=== PATIENT | female | born 1935 | race Caucasian/White ===

== ENCOUNTER 2022-02-03 16:33 | Inpatient (IN) | payer OTHER ==
[~2022-02-03] VITALS: Ht 147.3 cm; Wt 52.6 kg
[2022-02-03 17:15] VITALS: BP_SYST 179
[2022-02-03] MEDS ORDERED: ASPIRIN 81 MG TAB.CHEW PO ONE (17:30)
[2022-02-03 18:41] LABS: EOSINOPHILS # (AUTO) 0.2 K/uL (0.0-0.4); HEMOGLOBIN 10.2 g/dL (12.0-16.0); MONOCYTES # (AUTO) 0.6 K/uL (0.0-1.0); NEUTROPHILS # (AUTO) 3.6 K/uL (1.8-7.7); RED CELL DISTRIBUTION WIDTH 12.8 % (9.0-15.0)
[2022-02-03 18:52] LABS: ANION GAP 8 (5-15); CALCIUM 10.1 mg/dL (8.4-11.0); CHLORIDE 101 mmol/L (98-107); CREATININE 1.99 mg/dL (0.55-1.30); GLUCOSE 103 mg/dL (70-99); UREA NITROGEN, BLOOD 51 mg/dL (8-21)
[2022-02-03 19:00] LABS: BASOPHILS % (AUTO) 0.8 % (0.0-2.0); EOSINOPHILS % (AUTO) 3.2 % (0.0-4.0); HEMATOCRIT 30.1 % (36-48); LYMPHOCYTES # (AUTO) 1.5 K/uL (1.0-5.5); LYMPHOCYTES % (AUTO) 25.5 % (20.5-51.5); MEAN CORPUSCULAR HEMOGLOBIN 31 pg (27-31); MEAN CORPUSCULAR HGB CONC 34 % (32-36); MEAN CORPUSCULAR VOLUME 91 fL (79.0-98.0); MONOCYTES % (AUTO) 10.5 % (1.7-9.3); PLATELET COUNT (AUTO) 160 K/uL (130-430); RED BLOOD CELL COUNT(AUTO) 3.31 MIL/uL (4.2-6.2); WHITE BLOOD COUNT (AUTO) 5.9 K/uL (4.8-10.8)
[2022-02-03 19:01] LABS: ALANINE AMINOTRANSFERASE 13 U/L (12-78); ALBUMIN 3.8 g/dL (3.4-4.8); ASPARTATE AMINOTRANSFERASE 19 U/L (10-37); TOTAL BILIRUBIN 0.5 mg/dL (0.0-1.0)
[2022-02-03] MEDS ORDERED: BENZ100C92 PO (19:40)
[2022-02-03] MEDS ORDERED: SULF1TAB48 PO (19:40)
[2022-02-03] MEDS ORDERED: FUROSEMIDE 40 MG/4 ML VIAL IVP ONE (19:45)
[2022-02-03] MEDS ORDERED: NITROGLYCERIN 1 INCH (GM) OINT. TP ONE (19:45)
[2022-02-03] MEDS ORDERED: ACETAMINOPHEN 325 MG TABLET PO ONE (19:45)
[2022-02-03 20:27] LABS: BILIRUBIN,URINE NEGATIVE (NEGATIVE); CLARITY/URINE CLOUDY (CLEAR); GLUCOSE,URINE NEGATIVE (NEGATIVE); KETONES,URINE NEGATIVE (NEGATIVE); LEUKOCYTE ESTERASE ,URINE TRACE (NEGATIVE); NITRITE, URINE NEGATIVE (NEGATIVE); PH,URINE 6.5 (5.0-8.0); PROTEIN URINE NEGATIVE (NEGATIVE); UROBILINOGEN,URINE 0.2 (0.2-1.0)
[2022-02-03 20:57] LABS: BLOOD, URINE TRACE (NEGATIVE); COLOR,URINE STRAW (YELLOW)
[2022-02-03 21:33] LABS: BACTERIA,URINE MODERATE /HPF (None Seen); RBC,URINE 0-3 /HPF (0-3)
[2022-02-03] MEDS ORDERED: SIMV80TA88 PO (22:14)
[2022-02-03] MEDS ORDERED: HYDR56CR TP (22:14)
[2022-02-03] MEDS ORDERED: PROP10DR2 EACH EYE (22:14)
[2022-02-03] MEDS ORDERED: APIX2.5T PO (22:14)
[2022-02-03] MEDS ORDERED: FURO-149 PO (22:14)
[2022-02-03] MEDS ORDERED: NEOM28.36 TP (22:14)
[2022-02-03] MEDS ORDERED: INUL2TAB6 PO (22:14)
[2022-02-03] MEDS ORDERED: FEXO-25 PO (22:14)
[2022-02-03] MEDS ORDERED: HYDR-4039 PO (22:14)
[2022-02-03] MEDS ORDERED: CARV3.1246 PO (22:14)
[2022-02-03] MEDS ORDERED: LOSA25TA3 PO (22:14)
[2022-02-03] MEDS ORDERED: MENT7.6L2 PO (22:14)
[2022-02-03] MEDS ORDERED: ASPI-1155 PO (22:14)
[2022-02-03] MEDS ORDERED: IMO2 PO (22:14)
[2022-02-03] MEDS ORDERED: FERR236T3 PO (22:14)
[2022-02-04] MEDS: FUROSEMIDE 40 MG/4 ML VIAL IVP SCH ×2 (09:48→21:29)
[2022-02-04] MEDS ORDERED: IPRATROPIUM/ALBUTEROL SULFATE 3 ML AMPUL.NEB (DUONEB) INH PRN (10:15)
[2022-02-04 10:52] LABS: CALCIUM 9.1 mg/dL (8.4-11.0)
[2022-02-04] MEDS ORDERED: APIXABAN 2.5 MG TABLET PO ONE (12:15)
[2022-02-04] MEDS ORDERED: CARVEDILOL 3.125 MG TABLET (COREG) PO ONE (12:15)
[2022-02-04] MEDS ORDERED: ISOSORBIDE MONONITRATE 30 MG TAB.ER.24H PO ONE (12:15)
[2022-02-04] MEDS ORDERED: LOSARTAN POTASSIUM 25 MG TABLET PO ONE (12:45)
[2022-02-04 13:03] VITALS: BP_SYST 146
[2022-02-04] MEDS ORDERED: hydrALAZINE HCL 25 MG TABLET PO ONE (13:30)
[2022-02-04 20:00] VITALS: BP_SYST 171
[2022-02-04] MEDS: SIMVASTATIN 40 MG TABLET PO SCH (21:27)
[2022-02-04] MEDS: CARVEDILOL 3.125 MG TABLET (COREG) PO SCH (21:29)
[2022-02-04] MEDS: ENOXAPARIN SODIUM 30 MG/0.3 ML SYRINGE SUBCUT SCH (21:30)
[2022-02-04] MEDS: APIXABAN 2.5 MG TABLET PO SCH (21:31)
[2022-02-05 05:00] VITALS: BP_SYST 150
[2022-02-05 06:41] LABS: BASOPHILS # (AUTO) 0.1 K/uL (0.0-0.2); BASOPHILS % (AUTO) 0.9 % (0.0-2.0); EOSINOPHILS # (AUTO) 0.1 K/uL (0.0-0.4); EOSINOPHILS % (AUTO) 2.5 % (0.0-4.0); HEMATOCRIT 28.5 % (36-48); HEMOGLOBIN 9.8 g/dL (12.0-16.0); LYMPHOCYTES # (AUTO) 1.4 K/uL (1.0-5.5); LYMPHOCYTES % (AUTO) 24.9 % (20.5-51.5); MEAN CORPUSCULAR HEMOGLOBIN 31 pg (27-31); MEAN CORPUSCULAR HGB CONC 34 % (32-36); MEAN CORPUSCULAR VOLUME 90 fL (79.0-98.0); MONOCYTES # (AUTO) 0.5 K/uL (0.0-1.0); MONOCYTES % (AUTO) 9.5 % (1.7-9.3); NEUTROPHILS # (AUTO) 3.4 K/uL (1.8-7.7); NEUTROPHILS % (AUTO) 62.2 % (40.0-70.0); PLATELET COUNT (AUTO) 163 K/uL (130-430); RED BLOOD CELL COUNT(AUTO) 3.16 MIL/uL (4.2-6.2); RED CELL DISTRIBUTION WIDTH 12.4 % (9.0-15.0); WHITE BLOOD COUNT (AUTO) 5.4 K/uL (4.8-10.8)
[2022-02-05 07:45] VITALS: BP_SYST 178
[2022-02-05 07:47] LABS: ALANINE AMINOTRANSFERASE 16 U/L (12-78); ALBUMIN 3.6 g/dL (3.4-4.8); ANION GAP 9 (5-15); ASPARTATE AMINOTRANSFERASE 17 U/L (10-37); CALCIUM 9.3 mg/dL (8.4-11.0); CHLORIDE 102 mmol/L (98-107); CREATININE 1.91 mg/dL (0.55-1.30); GLUCOSE 101 mg/dL (70-99); TOTAL BILIRUBIN 0.5 mg/dL (0.0-1.0); UREA NITROGEN, BLOOD 52 mg/dL (8-21)
[2022-02-05] MEDS: FUROSEMIDE 40 MG/4 ML VIAL IVP SCH ×2 (08:39→21:30)
[2022-02-05] MEDS: CARVEDILOL 3.125 MG TABLET (COREG) PO SCH (08:40)
[2022-02-05] MEDS: LOSARTAN POTASSIUM 25 MG TABLET PO SCH (08:40)
[2022-02-05] MEDS: ISOSORBIDE MONONITRATE 30 MG TAB.ER.24H PO SCH (08:41)
[2022-02-05] MEDS: APIXABAN 2.5 MG TABLET PO SCH ×2 (08:43→21:41)
[2022-02-05] MEDS ORDERED: POTASSIUM CHLORIDE 20 MEQ TAB.PRT.SR PO ONE (10:15)
[2022-02-05 12:25] VITALS: BP_SYST 156
[2022-02-05 16:30] VITALS: BP_SYST 143
[2022-02-05] MEDS: SIMVASTATIN 40 MG TABLET PO SCH (21:30)
[2022-02-05] MEDS: ENOXAPARIN SODIUM 30 MG/0.3 ML SYRINGE SUBCUT SCH (21:34)
[2022-02-05] MEDS: CARVEDILOL 6.25 MG TABLET (COREG) PO SCH (21:39)
[2022-02-06] VITALS: BP_SYST 141
[2022-02-06 07:45] VITALS: BP_SYST 154
[2022-02-06] MEDS: ISOSORBIDE MONONITRATE 30 MG TAB.ER.24H PO SCH (08:29)
[2022-02-06] MEDS: APIXABAN 2.5 MG TABLET PO SCH (08:30)
[2022-02-06] MEDS: LOSARTAN POTASSIUM 25 MG TABLET PO SCH (08:30)
[2022-02-06] MEDS: CARVEDILOL 6.25 MG TABLET (COREG) PO SCH (08:31)
[2022-02-06] MEDS: FUROSEMIDE 40 MG/4 ML VIAL IVP SCH (08:32)
[2022-02-06 12:10] VITALS: BP_SYST 138
== END 2022-02-06 15:30 | disposition home or self-care (01) | DRG 191 ==
LOC: SED 16:33 → STU 21:09
PROVIDERS: ADMIT Internal Medicine; ATTEND Internal Medicine
DX: J44.1 Chronic obstructive pulmonary disease with (acute) exacerbation (principal); N17.9 Acute kidney failure, unspecified; R07.89 Other chest pain; I25.10 Atherosclerotic heart disease of native coronary artery without angina pectoris; I12.9 Hypertensive chronic kidney disease with stage 1 through stage 4 chronic kidney disease, or unspecified chronic kidney disease; E03.9 Hypothyroidism, unspecified; Z20.822 Contact with and (suspected) exposure to COVID-19; N18.30 Chronic kidney disease, stage 3 unspecified; I48.91 Unspecified atrial fibrillation; E78.5 Hyperlipidemia, unspecified; Z88.8 Allergy status to other drugs, medicaments and biological substances; Z79.899 Other long term (current) drug therapy; Z95.1 Presence of aortocoronary bypass graft; Z79.82 Long term (current) use of aspirin; Z79.84 Long term (current) use of oral hypoglycemic drugs; Z79.01 Long term (current) use of anticoagulants
CPT/HCPCS: 36415; 71045; 76770; 80053; 81000; 82310; 83735; 83880; 84484; 85025; 87086; 93005; 93306; 96374; 99285; G0378; J1650; J1940